=== PATIENT | female | born 1990 | race Asian ===

== ENCOUNTER 2019-04-21 09:23 | Emergency (ER) | payer MEDICAID ==
[~2019-04-21] VITALS: Ht 160 cm; Wt 83.9 kg
[2019-04-21 09:38] VITALS: Ht 160 cm; Wt 83.9 kg
[2019-04-21 11:40] VITALS: BP 107/54
== END 2019-04-21 11:40 | disposition home or self-care (01) ==
LOC: ED 09:23
DX: R51 Headache (principal)
CPT/HCPCS: J0780; J1885

== ENCOUNTER 2019-04-29 19:33 | Emergency (ER) | payer OTHER, MEDICAID ==
[~2019-04-29] VITALS: Ht 165.1 cm; Wt 85.7 kg
[2019-04-29 23:44] VITALS: BP 114/74
== END 2019-04-29 23:44 | disposition home or self-care (01) ==
LOC: ED 19:33
DX: T23.271A Burn of second degree of right wrist, initial encounter (principal); S29.012A Strain of muscle and tendon of back wall of thorax, initial encounter; M54.2 Cervicalgia; M25.512 Pain in left shoulder; M25.511 Pain in right shoulder; R03.0 Elevated blood-pressure reading, without diagnosis of hypertension; V43.52XA Car driver injured in collision with other type car in traffic accident, initial encounter; Y93.I9 Activity, other involving external motion; Y92.488 Other paved roadways as the place of occurrence of the external cause; Y99.8 Other external cause status